=== PATIENT | female | born 1960 | race Caucasian/White ===

== ENCOUNTER 2021-12-26 08:24 | Observation (INO) ==
[2021-12-26] MEDS ORDERED: 0.9 % Sodium Chloride 1,000 ML IVC ONE (08:39)
[2021-12-26] MEDS ORDERED: Ondansetron 4 MG/2 ML VIAL IVP ONE (08:39)
[2021-12-26 10:03] LABS: Basophils # 0.1 K/mcL (0.0-0.2); Basophils % 1.5 %; Eosinophils # 0.6 K/mcL (0.0-0.6); Eosinophils % 10.7 %; Hematocrit 37.9 % (35.3-44.9); Hemoglobin 11.9 g/dL (11.5-15.4); Immature Granulocytes % 0.8 % (0-4); Lymphocytes # 0.9 K/mcL (0.6-4.6); Lymphocytes % 16.7 %; Mean Corpuscular HGB Conc 31.4 g/dL (31.6-35.5); Mean Corpuscular Hemoglobin 25.9 pg (28.0-33.3); Mean Corpuscular Volume 82.6 fL (83.0-100.0); Mean Platelet Volume 11.3 fL (9.4-12.4); Monocytes # 0.5 K/mcL (0.0-1.3); Monocytes % 10.1 %; Neutrophils # 3.2 K/mcL (1.6-8.9); Platelet Count 149 K/mcL (140-400); Red Blood Count 4.59 M/mcL (3.82-4.97); Red Cell Distribution Width 13.6 % (11.5-14.5); Segmented Neutrophils % 60.2 %; White Blood Count 5.3 K/mcL (4.3-11.1)
[2021-12-26 10:23] LABS: Alanine Aminotransferase 29 Units/L (7-52); Albumin 4.6 g/dL (3.5-5.7); Albumin/Globulin Ratio 1.2 (1.1-2.2); Alkaline Phosphatase 106 Units/L (34-104); Aspartate Amino Transferase 28 Units/L (13-39); BUN/Creatinine Ratio 24 (6-26); Bilirubin,Total 0.8 mg/dL (0.3-1.0); Blood Urea Nitrogen 67 mg/dL (8-23); Calcium 10.3 mg/dL (8.6-10.3); Carbon Dioxide 17 mEq/L (23-29); Chloride 109 mEq/L (98-107); Ethanol < 10 mg/dL (Less than 10); Globulin 3.9 g/dL (2.4-3.5); Glucose 89 mg/dL (70-105); Osmolality,Calculated 301 (280-300); Sodium 136 mEq/L (136-145); Total Protein 8.5 g/dL (6.4-8.9); Troponin I < 0.03 ng/mL (< 0.04); eGFR For African Americans 21 (> 60); eGFR For Non-African Americans 18 (> 60)
[2021-12-26 10:37] LABS: INR 1.1; Prothrombin Time 12.4 Seconds (9.4-12.1)
[2021-12-26 11:07] LABS: Bacteria,Urine Few per hpf (None-Few); Bilirubin,Urine Negative (Negative); Blood,Urine Trace (Negative); Clarity,Urine Turbid (Clear); Color,Urine Yellow (Yellow); Glucose,Urine (UA) Normal (Normal); Hyaline Casts,Urine Many per lpf (None Seen); Ketones,Urine Negative (Negative); Leukocyte Esterase,Urine Small (Negative); Mucus,Urine Few per lpf (None-Few); Nitrite,Urine Negative (Negative); Protein,Urine 200 mg/dL (Neg-Trace); Renal Epithelial Cells,Urine Few per hpf (None-Few); Specific Gravity,Urine 1.024 (1.010-1.025); Squamous Epithelial Cell,Urine Moderate per hpf (None-Few); Transitional Epi Cells,Urine Few per hpf (None-Few)
[2021-12-26] MEDS ORDERED: Mag Hydrox/Al Hydrox/Simeth 30 ML UDC PO PRN (15:05)
[2021-12-26] MEDS ORDERED: Ondansetron ODT 4 MG TAB.RAPDIS SL PRN (15:05)
[2021-12-26] MEDS ORDERED: Naloxone 0.4 MG/ML INJ IVP PRN (15:05)
[2021-12-26] MEDS ORDERED: MOM Conc 10 ML UD.LIQ PO PRN (15:05)
[2021-12-26] MEDS ORDERED: Perflutren Lipid Microsphere 1.3 ML in 0.9 % Sodium Chloride 8.7 ML IVP PRN (15:08)
[2021-12-26] MEDS: 0.9 % Sodium Chloride 1,000 ML IVC SCH ×2 (15:35→16:50)
[2021-12-26] MEDS: polyethylene glycoL 3350 17 GM POWD.PACK PO SCH (17:23)
[2021-12-26 20:34] LABS: Lipase 50 Units/L (11-82)
[2021-12-26] MEDS: Melatonin 3 MG TABLET PO PRN (21:04)
[2021-12-27] MEDS: 0.9 % Sodium Chloride 1,000 ML IVC SCH ×5 (04:08→20:13)
[2021-12-27] MEDS: *HR* Enoxaparin 40 MG/0.4 ML SYRINGE SQ SCH ×2 (04:51→20:13)
[2021-12-27 05:27] LABS: Basophils # 0.1 K/mcL (0.0-0.2); Basophils % 1.9 %; Eosinophils # 0.6 K/mcL (0.0-0.6); Eosinophils % 13.3 %; Hematocrit 36.6 % (35.3-44.9); Hemoglobin 11.5 g/dL (11.5-15.4); Immature Granulocytes % 0.9 % (0-4); Lymphocytes # 1.2 K/mcL (0.6-4.6); Lymphocytes % 24.9 %; Mean Corpuscular HGB Conc 31.4 g/dL (31.6-35.5); Mean Corpuscular Hemoglobin 26.1 pg (28.0-33.3); Mean Corpuscular Volume 83.2 fL (83.0-100.0); Mean Platelet Volume 11.3 fL (9.4-12.4); Monocytes # 0.5 K/mcL (0.0-1.3); Monocytes % 10.9 %; Neutrophils # 2.2 K/mcL (1.6-8.9); Platelet Count 132 K/mcL (140-400); Red Cell Distribution Width 13.6 % (11.5-14.5); Segmented Neutrophils % 48.1 %; White Blood Count 4.7 K/mcL (4.3-11.1)
[2021-12-27 08:29] LABS: Albumin/Globulin Ratio 1.2 (1.1-2.2); Bilirubin,Total 0.5 mg/dL (0.3-1.0); Globulin 3.4 g/dL (2.4-3.5); Total Protein 7.4 g/dL (6.4-8.9)
[2021-12-27] MEDS: polyethylene glycoL 3350 17 GM POWD.PACK PO SCH (08:38)
[2021-12-27] MEDS: cefTRIAXone 1,000 MG in 0.9 % Sodium Chloride 10 ML IVPB SCH (08:38)
[2021-12-27] MEDS ORDERED: hydrOXYzine pamoate 25 MG CAPSULE PO PRN (12:37)
[2021-12-27] MEDS: Melatonin 3 MG TABLET PO PRN (20:12)
[2021-12-27 23:26] LABS: Adenovirus Not Detected (Not Detect); Bordetella Pertussis Not Detected (Not Detect); Chlamydophila pneumoniae Not Detected (Not Detect); Coronavirus 229E Not Detected (Not Detect); Coronavirus HKU1 Not Detected (Not Detect); Coronavirus NL63 DETECTED (Not Detect); Coronavirus OC43 Not Detected (Not Detect); Human Metapneumovirus Not Detected (Not Detect); Human Rhinovirus/Enterovirus Not Detected (Not Detect); Influenza A Subtype 2009 H1 Not Detected (Not Detect); Influenza B Not Detected (Not Detect); Mycoplasma pneumoniae Not Detected (Not Detect); Parainfluenza Virus 1 Not Detected (Not Detect); Parainfluenza Virus 2 Not Detected (Not Detect); Parainfluenza Virus 3 Not Detected (Not Detect); Parainfluenza Virus 4 Not Detected (Not Detect); Respiratory Syncytial Virus Not Detected (Not Detect); SARS-CoV-2 Not Detected (Not Detect)
[2021-12-28 01:34] LABS: BUN/Creatinine Ratio 35 (6-26); Blood Urea Nitrogen 33 mg/dL (8-23); Calcium 8.7 mg/dL (8.6-10.3); Carbon Dioxide 16 mEq/L (23-29); Chloride 117 mEq/L (98-107); Glucose 86 mg/dL (70-105); Osmolality,Calculated 293 (280-300); Potassium 4.6 mEq/L (3.5-5.1); Sodium 138 mEq/L (136-145); eGFR For African Americans > 60 (> 60); eGFR For Non-African Americans 60 (> 60)
[2021-12-28 04:44] LABS: Amphetamine Screen,Urine Negative ng/mL (Cutoff=1000); Barbiturate Screen,Urine Negative ng/mL (Cutoff=200); Benzodiazepines Screen,Urine Negative ng/mL (Cutoff=200); Cannabinoid Screen,Urine Negative ng/mL (Cutoff = 50); Cocaine Screen,Urine Negative ng/mL (Cutoff= 300); Opiate Screen,Urine Negative ng/mL (Cutoff=300); Phencyclidine Screen,Urine Negative ng/mL (Cutoff=25)
[2021-12-28] MEDS: 0.9 % Sodium Chloride 1,000 ML IVC SCH (06:06)
[2021-12-28] MEDS: cefTRIAXone 1,000 MG in 0.9 % Sodium Chloride 10 ML IVPB SCH (08:58)
[2021-12-28] MEDS: polyethylene glycoL 3350 17 GM POWD.PACK PO SCH (09:10)
[2021-12-28 10:36] VITALS: BP 150/92; PULSE 80; TEMP 98.3; O2SAT 97
== END 2021-12-28 12:25 ==
LOC: EMEROOARM 08:24 → 3BNU 08:24 → SUATTDRO 15:32 → 3BNU 16:24
PROVIDERS: ADMIT Internal Medicine; ATTEND Registered Nurse